=== PATIENT | female | born 1950 | race Caucasian/White ===

== ENCOUNTER 2018-04-07 06:18 | Day surgery (SDC) | payer OTHER ==
[~2018-04-07] VITALS: Ht 167.6 cm; Wt 61.2 kg
--- NOTE | ~2018-04-07 | O ---
[facility] [place] [address] OPERATIVE REPORT Name: CHUY BOYD Room #: DEP [facility].#: [id number] Admission: 04/07/18 Attend Phys: Tj Ortez MD Discharge: 04/07/18 Date of : 46 Report #: [id number] THIS REPORT FOR: //name// CC: [facility] Physician staff Shameka Ortez DATE OF SERVICE: 04/07/2018 SURGEON: Tj Ortez MD MILK COLLECTOR: None. PREOPERATIVE DIAGNOSIS: Bilateral lower lid ectropion. POSTOPERATIVE DIAGNOSIS: Bilateral lower lid ectropion. OPERATION PERFORMED: Bilateral lower lid ectropion repair. ANESTHESIA: Local with IV sedation. COMPLICATIONS: None. INDICATIONS FOR PROCEDURE: This patient has bilateral acquired lower lid ectropion with chronic tearing and discharge. The current procedures are undertaken in order to improve the patient's visual function, lacrimal outflow, and level of comfort. Informed consent was obtained to include but not limit to the risk of loss of vision, bleeding, infection, scarring, failure to improve the problem and need for further surgery. DESCRIPTION OF OPERATION: The patient was taken to the operating room where 2% Xylocaine with epinephrine mixed with equal parts of 0.75% Marcaine with Wydase was administered transcutaneously and transconjunctivally to each lower lid and lateral canthal area. The patient was then prepped and draped in the usual sterile fashion. A Rey clamp was then used to clamp the left lateral canthus following which a sharp canthotomy and cantholysis were performed. The tarsal strip was prepared laterally, removing the lash bearing portion of the redundant lid margin and the redundant tarsal plate. Hemostasis was achieved with a monopolar cautery, as it was throughout the case. The tarsal strip was then secured to the internal portion of the lateral orbital tubercle with two interrupted 5-0 Prolene sutures. The lateral canthal angle was sharply reformed as the subcutaneous structures and the skin were closed with multiple interrupted 6-0 plain gut sutures. [address] [address] OPERATIVE REPORT Name: DEBCARLRENETTA Spear Room #: DEP [facility]..#: [id number] Admission: 04/07/18 Attend Phys: Tj Ortez MD Discharge: 04/07/18 Date of : 46 Report #: [id number] Attention was then turned to the right side where the same procedure was performed. The wounds were cleaned and dressed with ophthalmic antibiotic ointment. The patient was then transported to the recovery area, having tolerated the procedure well with no anesthetic or operative complications being noted. <ELECTRONICALLY SIGNED> By: Tj Ortez MD 04/11/18 0618 0750 08 Tj Ortez MD /nt
[~2018-04-07 06:18] MED LIST: ACYCLOVIR 200200 MG PO; AZITHROMYCIN 2250 MG PO; BACTRIM DS TAB1 EACH PO; BENADRYL25 MG PO; COMBIVENT INH; CRESEMBA186 MG PO; DILTIAZEM 24HR240 M2 PO; ESTRADIOL 1 MG T1 M1 PO; FOLIC ACID1 MG PO; HUMALOG100 UNIT/1 SUBQ; LEVEMIR100 UNIT/1 SUBQ; LISINOPRIL5 MG PO; MAGOX 400400 MG PO; METHOTREXATE 22.5 MG PO; MULTIVITAMINS PO; PREDNISONE 5 MG5 M1 PO; TACROLIMUS0.5 MG PO; TIROSINT25 MCG PO
[2018-04-07 07:00] VITALS: BP 112/62
== END 2018-04-07 08:40 | disposition home or self-care (01) ==
LOC: OR 06:18 → TBA 06:20 → OR 08:40
DX: H02.105 Unspecified ectropion of left lower eyelid (principal); H02.102 Unspecified ectropion of right lower eyelid; I10 Essential (primary) hypertension; E11.9 Type 2 diabetes mellitus without complications; J43.9 Emphysema, unspecified; E03.9 Hypothyroidism, unspecified; Z85.828 Personal history of other malignant neoplasm of skin; Z79.4 Long term (current) use of insulin; Z87.891 Personal history of nicotine dependence; Z98.890 Other specified postprocedural states; Z79.899 Other long term (current) drug therapy; Z91.041 Radiographic dye allergy status
CPT/HCPCS: 50010; 50101; 50386; 50398; 51636; 56527; 56531; 62110; 62850; 70005